=== PATIENT | male | born 1990 | race Caucasian/White ===

== ENCOUNTER 2018-01-18 13:32 | Emergency (ER) | payer OTHER ==
[~2018-01-18] VITALS: Ht 172.7 cm; Wt 76.5 kg
[~2018-01-18 13:32] MED LIST: DIPH2%T PO; HYDR50 PO; LITH1TAB3 PO; LITH300 PO; PROP10TA26 PO; SERO100T PO
--- NOTE | 2018-01-18 16:48 | PD ---
HPI Chief Complaint: Psychiatric Symptoms Time Seen by Provider: 16:10 Travel History International Travel<30 days: No Contact w/Intl Traveler<30days: No History of Present Illness HPI 27-year-old male with history of PTSD brought into the emergency department under the Arthur act for suicidal ideation. Patient states he has a plan to jump out in front of a car to kill himself. Patient has history of bipolar disorder, and states he has been taking his lithium. Patient states is having a lot of family stressors which is causing him to feel suicidal. He denies any acute medical issues currently. He is allergic to Haldol and lamotrigine. PFSH Past Medical History Bipolar Disorder: Yes Social History Alcohol Use: No Tobacco Use: No Substance Use: No Allergies-Medications (Allergen,Severity, Reaction): Coded Allergies: haloperidol (Unverified Allergy, Unknown, 06/16/17) lamotrigine (Unverified Allergy, Unknown, 06/16/17) Reported Meds & Prescriptions Reported Meds & Active Scripts Active Reported Seroquel 100 mg (Quetiapine Fumarate) 100 Mg Tab 150 Mg PO HS Seroquel 100 mg (Quetiapine Fumarate) 100 Mg Tab 100 Mg PO DAILY Sultan Carbonate Er (Sultan Carbonate) 300 Mg Tab 900 Mg PO HS Benadryl (Diphenhydramine HCl) 25 Mg Cap 75 Mg PO HS PRN Vistaril 50 Mg Cap (Hydroxyzine Pamoate) 50 Mg Cap 50 Mg PO Q8 PRN Inderal (Propranolol HCl) 10 Mg Tab 20 Mg PO Q8 PRN Lithobid (Sultan Carbonate) 300 Mg Tab 600 Mg PO DAILY-RT Review of Systems Except as stated in HPI: all other systems reviewed are Neg General / Constitutional: No: Fever Eyes: No: Visual changes HENT: No: Headaches Cardiovascular: No: Chest Pain or Discomfort Respiratory: No: Shortness of Breath Gastrointestinal: No: Abdominal Pain Genitourinary: No: Dysuria Musculoskeletal: No: Pain Skin: No Rash Neurologic: No: Weakness Psychiatric: No: Depression Endocrine: No: Polydipsia Hematologic/Lymphatic: No: Easy Bruising Physical Exam Narrative GENERAL: Patient appears in no obvious distress. He is eating while my exam occurs. SKIN: Warm and dry. Normal color. Normal turgor. No signs of trauma. HEAD: Atraumatic. Normocephalic. EYES: Pupils equal and round. No scleral icterus. No injection or drainage. ENT: No nasal bleeding or discharge. Mucous membranes pink and moist. Pharynx is clear. Airways patent. NECK: Trachea midline. Supple nontender. CARDIOVASCULAR: Regular rate and rhythm. RESPIRATORY: No accessory muscle use. Clear to auscultation. Breath sounds equal bilaterally. MUSCULOSKELETAL: Extremities without clubbing, cyanosis, or edema. No obvious deformities. NEUROLOGICAL: Awake and alert. No obvious cranial nerve deficits. Motor grossly within normal limits. Five out of 5 muscle strength in the arms and legs. Normal speech. PSYCHIATRIC: Appropriate mood and affect; insight and judgment normal. Data Data Orders Orders Complete Blood Count With Diff (01/18/18 16:11) Comprehensive Metabolic Panel (01/18/18 16:11) Thyroid Stimulating Hormone (01/18/18 16:11) Psych Screen (01/18/18 16:11) [place] (Li) (01/18/18 16:11) Drug Screen, Random Urine (01/18/18 16:11) Alcohol (Ethanol) (01/18/18 16:11) MDM Medical Decision Making Medical Screen Exam Complete: Yes Emergency Medical Condition: Yes Differential Diagnosis Bipolar disorder. Suicidal ideation. Arthur act. Narrative Course Patient is medically stable at time of exam. Psychiatric labs are ordered per protocol including lithium level. Psych screen is ordered. Patient is medically clear for psychiatric evaluation. Condition: Stable Kareem Sales Jan 18, 2018 16:48
[2018-01-18 17:53] LABS: AUTOMATED NEUTROPHIL # 7.3 TH/MM3 (1.8-7.7); BASOPHIL # 0.1 TH/MM3 (0-0.2); BASOPHIL % 0.6 % (0.0-2.0); EOSINOPHIL # 0.2 TH/MM3 (0-0.4); EOSINOPHIL % 1.8 % (0.0-4.0); HEMATOCRIT 47.8 % (39.0-51.0); HEMOGLOBIN 16.3 GM/DL (13.0-17.0); LYMPH % 17.2 % (9.0-44.0); LYMPHOCYTE # 1.7 TH/MM3 (1.0-4.8); MEAN CELL VOLUME 91.4 FL (80.0-100.0); MEAN CORPUSCULAR HEMOGLOBIN 31.2 PG (27.0-34.0); MEAN CORPUSCULAR HGB CONC 34.2 % (32.0-36.0); MEAN PLATELET VOLUME 10.4 FL (7.0-11.0); MONO % 5.4 % (0.0-8.0); MONOCYTE # 0.5 TH/MM3 (0-0.9); PLATELET COUNT 182 TH/MM3 (150-450); RED BLOOD COUNT 5.23 MIL/MM3 (4.50-5.90); RED CELL DISTRIBUTION WIDTH 13.5 % (11.6-17.2); WHITE BLOOD COUNT 9.7 TH/MM3 (4.0-11.0)
[2018-01-18 18:15] LABS: ALBUMIN 4.5 GM/DL (3.4-5.0); AST (GOT) 16 U/L (15-37); BICARBONATE 27.2 MEQ/L (21.0-32.0); BLOOD UREA NITROGEN 8 MG/DL (7-18); CALCIUM 9.5 MG/DL (8.5-10.1); CHLORIDE 106 MEQ/L (98-107); CREATININE 1.07 MG/DL (0.60-1.30); GLOMERULAR FILTRATION RATE 84 ML/MIN (>89); GLUCOSE,RANDOM 79 MG/DL (74-106); SODIUM (NA) 141 MEQ/L (136-145)
[2018-01-18 18:26] LABS: ALKALINE PHOSPHATASE 73 U/L (45-117); ALT (GPT) 28 U/L (12-78); TOTAL BILIRUBIN ADULT 0.6 MG/DL (0.2-1.0); TOTAL PROTEIN 7.9 GM/DL (6.4-8.2)
[2018-01-18 19:04] VITALS: BP 149/77; PULSE 78; RESP 18; O2SAT 99
[2018-01-18] MEDS ORDERED: SERO400T PO (22:56)
[2018-01-18] MEDS ORDERED: BUSP10TA PO (22:56)
[2018-01-18] MEDS ORDERED: TRIL150T PO (22:56)
[2018-01-18] MEDS ORDERED: LITH600C PO (22:56)
[2018-01-18] MEDS ORDERED: QUEtiapine FUMARATE 200 MG TAB PO ONE (23:00)
[2018-01-19 02:31] VITALS: BP 112/56; PULSE 61; RESP 18; O2SAT 100
[2018-01-19 10:05] VITALS: BP 120/63; PULSE 71; RESP 18
--- NOTE | 2018-01-19 14:57 | PD ---
History of Present Illness Chief Complaint: Psychiatric Symptoms Time Seen by Provider: 14:30 Travel History International Travel<30 Days: No Contact w/Intl Traveler<30days: No Known affected area: No Legal Status Legal Status: [employer] History of Present Illness: History of Present Illness HPI 27-year-old, single male, on disability, living with his uncle, with history of bipolar disorder brought into the emergency department under the Arthur act initiated by his outpatient therapist for suicidal ideation. The Arthur act alleges that the patient states he has a plan to jump out in front of a car to kill himself. The patient did not make any attempt at harming himself. He has been monitored in secure environment and has presented no behavioral concerns and no suicidality. Electronic medical record is reviewed. The patient was seen and evaluated in the ED back in 2014 after he moved to the area. Current toxicology is negative for any substances. His lithium level is 0.8. Patient is alert, oriented, male who is alert and oriented, engaging and cooperative. He is dressed in hospital scrubs and is maintaining basic hygiene. His speech is clear, logical, goal directed, of normal rate and tone. He is not exhibiting any indication of any hallucinatory process and he denies any hallucinations, delusions, paranoia. He is not manic or hypomanic. He states"I'm here because my uncle treats me like shit. I'm good now and I'm ready to go. I just get frustrated with him at times and I need a break from him. I'm going to be getting an inheritance from her grandmother and will be moving out into my own apartment very shortly." He denies any suicidal or homicidal ideation, intent or plan. Fund of knowledge appears average. Concentration and attention are adequate. Telephone call to his uncle Anson at [phone]. He has no concerns for his safety if he is discharged. He states that he has difficulty following rules at home and does not like to be told what to do and that he frequently gets himself admitted at various facilities when they attempt to set some limits on his behavior. PFSH Past Medical History Medical History: Denies Significant Hx Bipolar Disorder: Yes Patient Takes Glucophage: No Diminished Hearing: No Tetanus Vaccination: Unknown ?: Not Past Surgical History Surgical History: No Previous Surgery Psychiatric History Psychiatric History Hx Psychiatric Treatment: HX OF BIPOLAR diagnosed at age 18. Currently sees a therapist and has outpatient treatment in [place] at [facility]. History of Inpatient Treatment: Yes (multiple admissions last one in October.) Guns or firearms in home: No Social History Single, never , no children. Born in [place]. Moved to the area several months ago and had been living in [place]. Is currently living with his aunt and uncle. He is unemployed and on Social Security disability. Hx Alcohol Use: Yes (Rarely socially per pt. ) Hx Tobacco Use: Yes (1/2PPD) Hx Substance Use: No Substance Use Type: Alcohol, Cocaine (had been abusing cocaine prior to moving to the [facility].) Hx of Substance Use Treatment: Yes (has been at different sober living facilities. Currently denies any use of substances.) Family Psychiatric History Negative Allergies-Medications (Allergen,Severity, Reaction): Coded Allergies: haloperidol (Unverified Allergy, Unknown, 06/16/17) lamotrigine (Unverified Allergy, Unknown, 06/16/17) Reported Meds & Prescriptions Reported Meds & Active Scripts Active Reported Buspirone (Buspirone HCl) 10 Mg Tab 10 Mg PO TID Trileptal (Oxcarbazepine) 150 Mg Tab 150 Mg PO BID [place] Carbonate 600 Mg Cap 600 Mg PO BID Seroquel (Quetiapine Fumarate) 400 Mg Tab 400 Mg PO HS Review of Systems Psychiatric: COMPLAINS OF: Mood changes Except as stated in HPI: all other systems reviewed are Neg Mental Status Examination Appearance: Appropriate Consciousness: Alert Orientation: x4 Motor Activity: Normal gait Speech: Unremarkable Language: Adequate Fund of Knowledge: Adequate Memory: Unremarkable Mood: Appropriate Affect: Appropriate Thought Process & Associations: Intact, Logical, Goal directed Thought Content: Appropriate Hallucination Type: None Delusion Type: None Suicidal Ideation: No Suicidal Plan: No Suicidal Intention: No Homicidal Ideation: No Homicidal Plan: No Homicidal Intention: No Insight: Fair Judgment: Impulsive MDM Medical Decision Making Medical Record Reviewed: Yes Assessment/Plan 27-year-old, single male, on disability, living with his uncle, with history of bipolar disorder brought into the emergency department under the Arthur act initiated by his outpatient therapist for suicidal ideation. The Arthur act alleges that the patient states he has a plan to jump out in front of a car to kill himself. The patient did not make any attempt at harming himself. He has been monitored in secure environment and has presented no behavioral concerns and no suicidality. Patient denies any suicidal or homicidal ideation, intent or plan. He denies any substance use. He states that he needed a break from his uncle and therefore came to the hospital. He admits he doesn't like rules. He is wanting to be discharge at this time. He is future oriented and has plans on getting an apartment when he receives his inheritance from his grandmother. Collateral information has been obtained and his uncle has no concerns if he were to be discharge. The patient has cognitively intact and is medication compliant. He does not meet criteria for Arthur act and it will be lifted. He is encouraged to follow up with his outpatient psychiatrist. Patient referral leaving and requested to change into clean clothes he had in his backpack as well as wanting to make sure that his shoes were clean before he was discharged. Psychiatrically clear for discharge from the ED. Orders Orders Complete Blood Count With Diff (01/18/18 16:11) Comprehensive Metabolic Panel (01/18/18 16:11) Thyroid Stimulating Hormone (01/18/18 16:11) Psych Screen (01/18/18 16:11) Cave (Li) (01/18/18 16:11) Drug Screen, Random Urine (01/18/18 16:11) Alcohol (Ethanol) (01/18/18 16:11) Diet Regular Basic (01/18/18 Dinner) Quetiapine (Seroquel) (01/18/18 23:00) Diet Regular Basic (01/19/18 Breakfast) Diet Regular Basic (01/19/18 Lunch) Results Vital Signs Date Time Temp Pulse Resp B/P (MAP) Pulse Ox O2 Delivery O2 Flow Rate FiO2 01/19/18 10:05 71 18 120/63 (82) Room Air 01/19/18 02:31 61 18 112/56 (74) 100 Room Air 01/18/18 19:04 78 18 149/77 (101) 99 Room Air Laboratory Tests Test 01/18/18 15:00 01/18/18 16:40 Urine Opiates Screen NEG Urine Barbiturates Screen NEG Urine Amphetamines Screen NEG Urine Benzodiazepines Screen NEG Urine Cocaine Screen NEG Urine Cannabinoids Screen NEG White Blood Count 9.7 Red Blood Count 5.23 Hemoglobin 16.3 Hematocrit 47.8 Mean Corpuscular Volume 91.4 Mean Corpuscular Hemoglobin 31.2 Mean Corpuscular Hemoglobin Concent 34.2 Red Cell Distribution Width 13.5 Platelet Count 182 Mean Platelet Volume 10.4 Neutrophils (%) (Auto) 75.0 Lymphocytes (%) (Auto) 17.2 Monocytes (%) (Auto) 5.4 Eosinophils (%) (Auto) 1.8 Basophils (%) (Auto) 0.6 Neutrophils # (Auto) 7.3 Lymphocytes # (Auto) 1.7 Monocytes # (Auto) 0.5 Eosinophils # (Auto) 0.2 Basophils # (Auto) 0.1 CBC Comment DIFF FINAL Differential Comment Blood Urea Nitrogen 8 Creatinine 1.07 Random Glucose 79 Total Protein 7.9 Albumin 4.5 Calcium Level 9.5 Alkaline Phosphatase 73 Aspartate Amino Transf (AST/SGOT) 16 Alanine Aminotransferase (ALT/SGPT) 28 Total Bilirubin 0.6 Sodium Level 141 Potassium Level 4.0 Chloride Level 106 Carbon Dioxide Level 27.2 Anion Gap 8 Estimat Glomerular Filtration Rate 84 Thyroid Stimulating Hormone 3rd Gen 1.650 Cave Level 0.8 Ethyl Alcohol Level LESS THAN 3 Diagnosis Primary Impression: Bipolar disorder Psychiatrically Cleared: Yes Med/ Other Pt Specific Info: No Change to Meds Disposition: 01 DISCHARGE HOME Condition: Stable Problem Qualifiers Primary Impression: Bipolar disorder Qualified Codes: F31.70 - Bipolar disorder, currently in remission, most recent episode unspecified Helga Moreno [facility] Jan 19, 2018 14:57
--- NOTE | 2018-01-19 15:12 | PD ---
Physical Exam Date Seen by Provider: Jan 19, 2018 Time Seen by Provider: 15:11 Narrative 27-year-old male previously medically cleared for psychiatric evaluation, has been seen by psychiatric staff and deemed psychiatrically stable for discharge at this time. Patient remains medically stable at this time. Patient is to follow-up as per psychiatric note. Data Data Last Documented VS Vital Signs Date Time Temp Pulse Resp B/P (MAP) Pulse Ox O2 Delivery O2 Flow Rate FiO2 01/19/18 10:05 71 18 120/63 (82) Room Air 01/19/18 02:31 100 Orders Orders Complete Blood Count With Diff (01/18/18 16:11) Comprehensive Metabolic Panel (01/18/18 16:11) Thyroid Stimulating Hormone (01/18/18 16:11) Psych Screen (01/18/18 16:11) [place] (Li) (01/18/18 16:11) Drug Screen, Random Urine (01/18/18 16:11) Alcohol (Ethanol) (01/18/18 16:11) Diet Regular Basic (01/18/18 Dinner) Quetiapine (Seroquel) (01/18/18 23:00) Diet Regular Basic (01/19/18 Breakfast) Diet Regular Basic (01/19/18 Lunch) Labs Laboratory Tests Test 01/18/18 15:00 01/18/18 16:40 Urine Opiates Screen NEG Urine Barbiturates Screen NEG Urine Amphetamines Screen NEG Urine Benzodiazepines Screen NEG Urine Cocaine Screen NEG Urine Cannabinoids Screen NEG White Blood Count 9.7 TH/MM3 Red Blood Count 5.23 MIL/MM3 Hemoglobin 16.3 GM/DL Hematocrit 47.8 % Mean Corpuscular Volume 91.4 FL Mean Corpuscular Hemoglobin 31.2 PG Mean Corpuscular Hemoglobin Concent 34.2 % Red Cell Distribution Width 13.5 % Platelet Count 182 TH/MM3 Mean Platelet Volume 10.4 FL Neutrophils (%) (Auto) 75.0 % Lymphocytes (%) (Auto) 17.2 % Monocytes (%) (Auto) 5.4 % Eosinophils (%) (Auto) 1.8 % Basophils (%) (Auto) 0.6 % Neutrophils # (Auto) 7.3 TH/MM3 Lymphocytes # (Auto) 1.7 TH/MM3 Monocytes # (Auto) 0.5 TH/MM3 Eosinophils # (Auto) 0.2 TH/MM3 Basophils # (Auto) 0.1 TH/MM3 CBC Comment DIFF FINAL Differential Comment Blood Urea Nitrogen 8 MG/DL Creatinine 1.07 MG/DL Random Glucose 79 MG/DL Total Protein 7.9 GM/DL Albumin 4.5 GM/DL Calcium Level 9.5 MG/DL Alkaline Phosphatase 73 U/L Aspartate Amino Transf (AST/SGOT) 16 U/L Alanine Aminotransferase (ALT/SGPT) 28 U/L Total Bilirubin 0.6 MG/DL Sodium Level 141 MEQ/L Potassium Level 4.0 MEQ/L Chloride Level 106 MEQ/L Carbon Dioxide Level 27.2 MEQ/L Anion Gap 8 MEQ/L Estimat Glomerular Filtration Rate 84 ML/MIN Thyroid Stimulating Hormone 3rd Gen 1.650 uIU/ML [place] Level 0.8 MEQ/L Ethyl Alcohol Level LESS THAN 3 MG/DL MDM Medical Record Reviewed: Yes Supervised Visit with ARON: Yes Narrative Course 27-year-old male previously medically cleared for psychiatric evaluation, has been seen by psychiatric staff and deemed psychiatrically stable for discharge at this time. Patient remains medically stable at this time. Patient is to follow-up as per psychiatric note. Diagnosis Primary Impression: Bipolar disorder Patient Instructions: General Instructions, Bipolar Disorder (ED), Suicide Prevention for Adults (ED) Departure Forms: Tests/Procedures Additional Instruction: Follow up with private therapist or Reggie Faulkner. Follow up with primary care clinic or [facility] for medical problems. Take all meds as prescribed. Disposition: 01 DISCHARGE HOME Condition: Stable Kareem Sales Jan 19, 2018 15:12
== END 2018-01-19 15:40 | disposition home or self-care (01) ==
LOC: NEPJ 13:32
DX: F31.70 Bipolar disorder, currently in remission, most recent episode unspecified (principal); R45.851 Suicidal ideations; F43.10 Post-traumatic stress disorder, unspecified; F17.200 Nicotine dependence, unspecified, uncomplicated
CPT/HCPCS: 80053; 80178; 80307; 84443; 85025; 99284